=== PATIENT | female | born 1990 | race African-American/Black ===

== ENCOUNTER → 2020-04-03 | Outpatient (CLI) | payer OTHER ==
[~2020-04-03] VITALS: Ht 175.3 cm; Wt 68.0 kg
== END ==
LOC: OPSV 09:00
DX: M06.00 Rheumatoid arthritis without rheumatoid factor, unspecified site (principal)
CPT/HCPCS: 96365; 96366; 96375; 96413; 96415; J1720; J1745; J7050

== ENCOUNTER → 2020-05-29 | Outpatient (CLI) | payer OTHER ==
[~2020-05-29] VITALS: Ht 175.3 cm; Wt 68.0 kg
== END ==
LOC: OPSV 09:00
DX: M06.00 Rheumatoid arthritis without rheumatoid factor, unspecified site (principal)
CPT/HCPCS: 96365; 96366; 96375; 96413; 96415; J1720; J1745; J7050

== ENCOUNTER → 2020-08-12 | Outpatient (CLI) | payer OTHER ==
[~2020-08-12] VITALS: Ht 175.3 cm; Wt 65.8 kg
== END ==
LOC: OPSV 07-24 09:00
DX: M06.00 Rheumatoid arthritis without rheumatoid factor, unspecified site (principal)
CPT/HCPCS: 96375; 96413; 96415; J1720; J1745; J7050